=== PATIENT | male | born 1950 | race Caucasian/White ===

== ENCOUNTER 2017-06-10 15:22 | Emergency (ER) | payer MEDICARE ==
--- NOTE | 2017-06-10 15:47 | UC ---
UC General HPI - HPI Summary HPI Summary: patient has stiff neck for the past 2 dadys, no pain just limited ROM. no trauma or injury - History of Current Complaint Chief Complaint: UCBackPain Stated Complaint: STIFF NECK Time Seen by Provider: 06/10/17 15:36 Hx Obtained From: Patient Onset/Duration: Sudden Onset, Lasting Days Timing: Constant Onset Severity: Mild Current Severity: Mild - Allergy/Home Medications Allergies/Adverse Reactions: Allergies Allergy/AdvReac Type Severity Reaction Status Date / Time Codeine Allergy Vomiting Verified 06/10/17 15:36 Home Medications: Home Medications Multivitamins/Minerals TAB* [Theragran/minerals TAB*] 1 tab PO DAILY 06/10/17 [ History Confirmed 06/10/17] Argillite-3 Fatty Acids [Fish Oil] 1,000 mg PO DAILY 06/10/17 [History Confirmed ] PMH/Surg Hx/FS Hx/Imm Hx Previously Healthy: Yes - Surgical History Surgical History: Yes Surgery Procedure, Year, and Place: Skin biopsy - Family History Known Family History: Positive: Hypertension - Social History Alcohol Use: Occasionally Substance Use Type: None Smoking Status (MU): Former Smoker Review of Systems Constitutional: Negative Skin: Negative Eyes: Negative ENT: Negative Respiratory: Negative Cardiovascular: Negative Gastrointestinal: Negative Genitourinary: Negative Motor: Negative Musculoskeletal: Decreased ROM, Myalgia Neurological: Negative Psychological: Negative All Other Systems Reviewed And Are Negative: Yes Physical Exam Triage Information Reviewed: Yes Appearance: Well-Appearing, Well-Nourished, Pain Distress Vital Signs: Initial Vital Signs Temp 98.0 F 06/10/17 15:24 Pulse 89 06/10/17 15:24 Resp 16 06/10/17 15:24 BP 159/64 06/10/17 15:24 Pulse Ox 96 06/10/17 15:24 Vital Signs Reviewed: Yes Eye Exam: Normal ENT Exam: Normal Dental Exam: Normal Neck exam: Normal Respiratory Exam: Normal Cardiovascular Exam: Normal Abdominal Exam: Normal Bowel Sounds: Positive: Present Musculoskeletal: Positive: Strength Intact, No Edema, ROM Limited @ - in all direction of the neck Neurological Exam: Normal Neurological: Positive: Alert, Muscle Tone Normal Psychological Exam: Normal Skin Exam: Normal Course/Dx - Course Course Of Treatment: hx obtained, exam performed ,meds reviewed, treated for spasmotic torticolis. - Differential Dx - Multi-Symptom Provider Diagnoses: torticolis Discharge - Discharge Plan Condition: Stable Disposition: HOME Prescriptions: Cyclobenzaprine TAB* [Flexeril 10 MG TAB*] 10 mg PO TID PRN #12 tab PRN Reason: Spasms Patient Education Materials: Spasmodic Torticollis (ED) Additional Instructions: 1. take the flexeril as needed, 2. Heat and stretch the neck multiple times a day. 3. Ibuprofen as needed for pain and inflammation
[2017-06-10 15:52] VITALS: BP 159/64
== END 2017-06-10 15:52 | disposition home or self-care (01) ==
LOC: UCCORT 15:22
DX: M43.6 Torticollis (principal); Z88.5 Allergy status to narcotic agent; Z87.891 Personal history of nicotine dependence
CPT/HCPCS: 99202; G0463

== ENCOUNTER 2019-01-22 14:25 | Emergency (ER) | payer MEDICARE, OTHER ==
--- OUTSIDE RECORDS SUMMARY | 2019-01-22 14:46 | XMS REPORT | Continuity of Care Document ---
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 Active Onset: 04/22/2018 Stress incontinence after Angel Martins M.D. Active prostatectomy Onset: 05/05/2018 Aneurysm of thoracic aorta Evelin Kovacs MD Active Onset: 07/21/2018 Polyneuropathy due to drug Evelin Kovacs MD Active Onset: 07/22/2018 Tobacco dependence in remission Evelin Kovacs MD Active Onset: 10/17/2018 Irritable bowel syndrome with Evelin Kovacs MD Active diarrhea Onset: 12/15/2018 Disorder of peripheral autonomic Evelin Kovacs MD Active nervous system Onset: 07/22/2017 Malignant melanoma of skin Angel Martins M.D. Inactive Inactive: 07/22/2018 Note: Pt remembers having skin cancer, but can't remeber what type. Onset: 07/22/2017 Raised prostate specific antigen Angel Martins M.D. Inactive Inactive: 07/22/2018 Onset: Malignant neoplasm of skin Inactive Inactive: 07/22/2018 Onset: 02/12/2018 Adult health examination Evelin Kovacs MD Inactive Inactive: 07/22/2018 Onset: 02/12/2018 Adjustment disorder with depressed mood Evelin Kovacs MD Inactive Inactive: 07/22/2018 Onset: 04/08/2018 Disorder of skin and/or Rebekah Bee MD, PHD Inactive subcutaneous tissue Inactive: 07/22/2018 Onset: 08/12/2017 Tobacco user Evelin Kovacs MD Inactive Inactive: 07/22/2018 Onset: 02/24/2018 Syncope and collapse Angel Martins M.D. Resolved Resolved: 07/22/2018 Onset: 04/08/2018 Tick-borne relapsing fever Rebekah Bee MD, PHD Resolved Resolved: 07/22/2018 Onset: 04/08/2018 Other hypotension Rebekah eBe MD, PHD Resolved Resolved: 07/22/2018 Onset: 04/18/2018 Edema Evelin Kovacs MD Resolved Resolved: 07/22/2018 Onset: 05/05/2018 Aphthous ulcer of mouth Evelin Kovacs MD Resolved Resolved: 07/22/2018 Onset: 06/30/2018 Urinary tract infectious disease Angel Martins M.D. Resolved Resolved: 07/22/2018 Family History Date Family Member(s) Observation Comments Father due to Diabetes () Father Diabetes Mellitus Type 2 Father Macular Degeneration : (age 84 Mother due to Diabetes Years) Mother Diabetes Mellitus Type 2 Siblings 2 First Sister Alive First Sister Diabetes Mellitus Type 2 Second Sister Alive Paternal Grandfather due to Unknown Causes () Paternal Grandmother due to Unknown Causes () Maternal Grandfather due to Antonia Gehrigs () Maternal Grandmother due to Unknown Causes () Social History Type Date Description Comments Sex Unknown Marital Status Single Lives With Alone Diet Healthy, Well Balanced Pets 3 cats 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 Hobbies Reading Hobbies singing, guitar Tobacco Use Start: Unknown End: Quit 02/09/18 Unknown Smoking Status Reviewed: 01/12/19 Quit 02/09/18 ETOH Use Currently consumes 5 dr/mo alcohol socially Recreational Drug Use Denies Drug Use Tobacco Use Start: Unknown End: Patient is a former 1 ppd x 37 yrs Unknown smoker Allergies, Adverse Reactions, Alerts Description No Known Drug Allergies Medications Medication Date Status Form Strength Qnty SIG Indications Ordering Provider Zolpidem 12/15/19 Active Tablets 5mg 60tab take 1-2 Fermín, Tartrate 19 s tablets by MD Evelin mouth at night as needed for sleep Reference #: [id number] Prednisone 12/15/19 Active TBPK 5mg (21) 21uni 1 tab once Fermín, 19 ts a day with MD Evelin zytiga Gabapentin 10/27/20 Active Capsules 300mg 90cap take one Fermín, 18 s capsule by MD Evelin mouth 3x/day, note new dose Multivitamin Active Tablets 1 by mouth Unknown Adult 00 every day Fish Oil + D3 Active Capsules 0767-4150 1 PO qd Unknown 00 mg-Unit Zytiga Active Tablets 250mg take one po Unknown 00 4 x daily Lortab 11/25/19 Hx Tablets 5-325mg 9tabs 1 tablet as Tia, 19 - needed for Jovon, 12/15/19 pain every MD,FACS 19 8 hours by mouth Keflex 07/16/20 Hx Capsules 500mg 21cap 1 tab by Lakshmi, 18 - s mouth three Mahmoud, 07/21/20 times a day M.D. 18 Ciprofloxacin 07/02/20 Hx Tablets 500mg 14tab 1 by mouth Lakshmi, HCL 18 - s twice a day Angel, 07/28/20 M.DMilind 18 No Active 06/30/20 Hx Unknown Medications 18 - 07/02/20 18 Torsemide 06/13/20 Hx Tablets 20mg 60tab 2 tabs in R60.9 Fermín, 18 - s am 1/2 hr MD Evelin 06/30/20 after 18 taking the metolazone; may take 1 tab in afternoon if needed Metolazone 06/13/20 Hx Tablets 10mg 30tab 1 tab by R60.9 Fermín, 18 - s mouth in am MD Evelin 06/30/20 18 Furosemide 05/05/20 Hx Tablets 40mg 60tab take one R60.9 Fermín, 18 - s tablet by MD Evelin 06/13/20 mouth in 18 the morning; may repeat in pm if needed Triamcinolone 05/05/20 Hx Paste 0.1% 5gm apply to K12.0 Fermín Acetonide 18 - affected MD Evelin Dental Paste 06/30/20 oral 18 lesions 3x/day if needed, especially before bed, Furosemide 04/18/20 Hx Tablets 40mg 30tab take one R60.9 Fermín 18 - s tablet by MD Evelin 04/22/20 mouth in 18 the morning; may repeat in pm if needed Zolpidem 04/18/20 Hx Tablets 5mg 60tab 1 tab at Fermín, Tartrate 18 - s bedtime, MD Evelin Unknown may repeat x1 Reference #: [id number] Doxycycline 04/08/20 Hx Capsules 100mg 60cap 1 tab by A68.1 Benita Bee 18 - s mouth twice Rebekah, 04/22/20 a day , PHD 18 D70.1 Acetaminophen 10/22/2017 - Hx Tablets 325mg 30tabs Take 2 Unknown 10/31/2017 tablets by mouth every 6 (six) hours as needed for up to 10 days Docusate Sodium 10/22/2017 - Hx Capsules 100mg 42caps Take 1 Unknown 01/01/2018 capsule by mouth Two Times Daily Hydrocodone-Aceta 10/22/2017 - Hx Tablets 5-325mg 12tabs Take 1 Unknown minophen 10/31/2017 tablet by mouth every 4 (four) hours as needed for up to 3 days, Max Daily Dose: 6 tablets Lortab 10/14/2017 - Hx Tablets 5-325mg 20tabs 1-2 tablets Tia, 10/31/2017 as needed ovidio Sigala 8 ,FACS hours for pain Ciprofloxacin HCL 07/22/2017 - Hx Tablets 500mg 6tabs 1 by mouth R97 Lakshmi, 08/06/2017 twice a day .20 rogelio Ortiz directed Carlene Kent Enema 07/22/2017 - Hx Enema 7-19GM/1 133ml 1 enema in R97 Lakshmi, 08/06/2017 18ML rectum in .20 Angel, the morning M.DMilind of procedure Nicotine 07/09/2017 - Hx Patches 21mg/24H 14units apply one F17 Guru, 07/22/2017 24HR R per day .21 Daily, after 0 PNP-BC, removing S[employer] WORKER [employer] ESC[employer], Ibclc previous days patch Fish Oil - Hx Capsules DR 1200mg take 1 tabs Unknown 10/31/2017 by mouth daily Vitamin D - Hx Tablets 1000Unit 1 by mouth Unknown 11/13/2017 every day Multi Vitamin - Hx Tablets 1 by mouth Unknown 06/30/2018 every day Ambien - Hx Tablets 10mg 30tabs take 1/2-1 Fermín, 12/15/2018 tablet by MD Evelin mouth at night as needed for sleep maximum Calcium + D - Hx Chewtabs 500-1000 Unknown 04/08/2018 -40mg-Un t-mcg Prednisone - Hx Tablets 5mg 1 po bid day Mila, 06/13/2018 before and carol Diamond chemo Fish Oil + D3 - Hx Capsules 1200-100 take once Unknown 06/30/2018 0mg-Unit daily. Biotin Plus - Hx Tablets [id number] one tab po Unknown Keratin 06/30/2018 daily otc Gabapentin - Hx Capsules 100mg 3 po tid Mila, 10/27/2018 MD Dara Medications Administered in Office Medication Date Status Form Strength Qnty SIG Indications Ordering Provider Leuprolide Administered Injection Lakshmi, Acetate 7.5 MG 018 Ubaldo OrtizLupron) Carlene Leuprolide Administered Injection Lakshmi, Acetate 7.5 MG 018 Ubaldo OrtizLupronSally Concepcion Leuprolide Administered Injection Lakshmi, Acetate 7.5 MG Janine Ortiz M.D. (Lupron) Immunizations CPT Code Status Date Vaccine Lot # [id number] Given 10/17/2018 Pneumococcal Conjugate Vaccine 13 Valent For [id number] Intramuscular Use 90029 Given 10/17/2018 Influenza High Dose [id number] 28511 Given 07/09/2017 Tdap injection [id number] Vital Signs Date Vital Result Comment 12/15/2018 2:57pm BP Systolic 130 mmHg BP Diastolic 80 mmHg Heart Rate 87 /min Respiratory Rate 18 /min Height 72 inches 6'0" Weight 216.00 lb BMI (Body Mass Index) 29.3 kg/m2 BSA (Body Surface Area) 2.20 m2 Gary body weight in kilograms 81 kg O2 % BldC Oximetry 97 % 11/25/2018 1:16pm BP Systolic 160 mmHg BP Diastolic 101 mmHg Heart Rate 97 /min Respiratory Rate 18 /min Height 72 inches 6'0" Weight 208.00 lb BMI (Body Mass Index) 28.2 kg/m2 BSA (Body Surface Area) 2.17 m2 Gary body weight in kilograms 81 kg 10/23/2018 2:00pm BP Systolic 123 mmHg BP Diastolic 79 mmHg Body Temperature 98.4 F Heart Rate 86 /min Respiratory Rate 18 /min Height 72 inches 6'0" Weight 208.00 lb BMI (Body Mass Index) 28.2 kg/m2 BSA (Body Surface Area) 2.17 m2 Gary body weight in kilograms 81 kg O2 % BldC Oximetry 95 % Pain Level 0 10/22/2018 2:23pm BP Systolic 142 mmHg BP Diastolic 101 mmHg Heart Rate 84 /min Respiratory Rate 18 /min Height 72 inches 6'0" Weight 210.00 lb BMI (Body Mass Index) 28.5 kg/m2 BSA (Body Surface Area) 2.18 m2 Gary body weight in kilograms 81 kg O2 % BldC Oximetry 99 % 10/17/2018 2:05pm BP Systolic 134 mmHg BP Diastolic 78 mmHg Body Temperature 98.6 F Heart Rate 85 /min Respiratory Rate 20 /min Height 72 inches 6'0" Weight 210.00 lb BMI (Body Mass Index) 28.5 kg/m2 BSA (Body Surface Area) 2.18 m2 Gary body weight in kilograms 81 kg O2 % BldC Oximetry 96 % 07/21/2018 1:07pm BP Systolic 137 mmHg BP Diastolic 81 mmHg Body Temperature 97.4 F Heart Rate 70 /min Respiratory Rate 18 /min Height 72 inches 6'0" Weight 204.00 lb BMI (Body Mass Index) 27.7 kg/m2 BSA (Body Surface Area) 2.15 m2 Gary body weight in kilograms 81 kg O2 % BldC Oximetry 96 % 07/11/2018 2:39pm BP Systolic 140 mmHg BP Diastolic 82 mmHg Body Temperature 98.9 F Heart Rate 64 /min Respiratory Rate 16 /min Height 72 inches 6'0" Gary body weight in kilograms 81 kg O2 % BldC Oximetry 98 % Pain Level 0 06/30/2018 3:42pm BP Systolic 121 mmHg BP Diastolic 77 mmHg Body Temperature 99.9 F Heart Rate 77 /min Respiratory Rate 18 /min Height 72 inches 6'0" Weight 202.50 lb BMI (Body Mass Index) 27.5 kg/m2 BSA (Body Surface Area) 2.14 m2 Gary body weight in kilograms 81 kg O2 % BldC Oximetry 97 % Pain Level 0 06/13/2018 1:06pm BP Systolic Sitting Left Arm 124 mmHg BP Diastolic Sitting Left Arm 70 mmHg Body Temperature 98.1 F Heart Rate 82 /min Height 72 inches 6'0" Weight 205.00 lb BMI (Body Mass Index) 27.8 kg/m2 BSA (Body Surface Area) 2.15 m2 Gary body weight in kilograms 81 kg O2 % BldC Oximetry 96 % 05/05/2018 2:47pm BP Systolic 122 mmHg BP Diastolic 68 mmHg Body Temperature 97.8 F Heart Rate 78 /min Respiratory Rate 18 /min Height 72 inches 6'0" Weight 210.00 lb BMI (Body Mass Index) 28.5 kg/m2 BSA (Body Surface Area) 2.18 m2 Gary body weight in kilograms 81 kg O2 % BldC Oximetry 98 % 04/22/2018 1:51pm BP Systolic 116 mmHg BP Diastolic 80 mmHg Body Temperature 99.7 F Heart Rate 81 /min Respiratory Rate 16 /min Height 72 inches 6'0" Weight 200.00 lb BMI (Body Mass Index) 27.1 kg/m2 BSA (Body Surface Area) 2.13 m2 Gary body weight in kilograms 81 kg O2 % BldC Oximetry 96 % Pain Level 0 04/18/2018 3:44pm BP Systolic 134 mmHg BP Diastolic 76 mmHg Body Temperature 98.3 F Heart Rate 84 /min Respiratory Rate 18 /min Height 72 inches 6'0" Weight 204.00 lb BMI (Body Mass Index) 27.7 kg/m2 BSA (Body Surface Area) 2.15 m2 Gary body weight in kilograms 81 kg O2 % BldC Oximetry 96 % 04/08/2018 12:15pm BP Systolic 85 mmHg 92/60 recheck BP Diastolic 54 mmHg 92/60 recheck Body Temperature 100.2 F Heart Rate 112 /min Respiratory Rate 24 /min Height 72 inches 6'0" Weight 195.00 lb BMI (Body Mass Index) 26.4 kg/m2 BSA (Body Surface Area) 2.11 m2 Gary body weight in kilograms 81 kg O2 % BldC Oximetry 95 % 02/24/2018 1:43pm BP Systolic 115 mmHg BP Diastolic 81 mmHg Body Temperature 97.9 F Heart Rate 116 /min Respiratory Rate 16 /min Height 72 inches 6'0" Weight 193.25 lb BMI (Body Mass Index) 26.2 kg/m2 BSA (Body Surface Area) 2.10 m2 Gary body weight in kilograms 81 kg O2 % BldC Oximetry 96 % Pain Level 0 02/12/2018 1:04pm BP Systolic 137 mmHg BP Diastolic 93 mmHg Body Temperature 98.6 F Heart Rate 89 /min Respiratory Rate 17 /min Height 72 inches 6'0" Weight 198.00 lb BMI (Body Mass Index) 26.9 kg/m2 BSA (Body Surface Area) 2.12 m2 Gary body weight in kilograms 81 kg 01/22/2018 9:23am BP Systolic 138 mmHg BP Diastolic 88 mmHg Height 72 inches 6'0" Weight 198.00 lb BMI (Body Mass Index) 26.9 kg/m2 BSA (Body Surface Area) 2.12 m2 Gary body weight in kilograms 81 kg 01/21/2018 1:18pm BP Systolic 154 mmHg BP Diastolic 94 mmHg 01/21/2018 1:12pm BP Systolic 176 mmHg BP Diastolic 112 mmHg Body Temperature 97.6 F Heart Rate 54 /min Respiratory Rate 16 /min Height 72 inches 6'0" Weight 197.38 lb BMI (Body Mass Index) 26.8 kg/m2 BSA (Body Surface Area) 2.12 m2 Gary body weight in kilograms 81 kg O2 % BldC Oximetry 971 % Pain Level 1 low abd left side 01/07/2018 3:15pm BP Systolic 158 mmHg BP Diastolic 96 mmHg Body Temperature 97.5 F Heart Rate 65 /min Respiratory Rate 18 /min Height 72 inches 6'0" Weight 199.00 lb BMI (Body Mass Index) 27.0 kg/m2 BSA (Body Surface Area) 2.13 m2 Gary body weight in kilograms 81 kg O2 % BldC Oximetry 98 % Pain Level 0 12/25/2017 4:34pm BP Systolic 149 mmHg BP Diastolic 94 mmHg Body Temperature 97.9 F Heart Rate 94 /min Respiratory Rate 17 /min Height 72 inches 6'0" Gary body weight in kilograms 81 kg O2 % BldC Oximetry 98 % Pain Level 0 12/24/2017 1:06pm Height 72 inches 6'0" Weight 194.00 lb BMI (Body Mass Index) 26.3 kg/m2 BSA (Body Surface Area) 2.10 m2 Gary body weight in kilograms 81 kg 12/10/2017 10:55am BP Systolic 141 mmHg BP Diastolic 88 mmHg Heart Rate 88 /min Height 72 inches 6'0" Weight 194.31 lb BMI (Body Mass Index) 26.4 kg/m2 BSA (Body Surface Area) 2.10 m2 Gary body weight in kilograms 81 kg 11/13/2017 1:09pm BP Systolic 118 mmHg BP Diastolic 84 mmHg Body Temperature 97.5 F Heart Rate 116 /min Height 72 inches 6'0" Weight 188.00 lb BMI (Body Mass Index) 25.5 kg/m2 BSA (Body Surface Area) 2.08 m2 Gary body weight in kilograms 81 kg O2 % BldC Oximetry 98 % 11/05/2017 3:03pm BP Systolic 122 mmHg BP Diastolic 88 mmHg Height 72 inches 6'0" Weight 200.00 lb BMI (Body Mass Index) 27.1 kg/m2 BSA (Body Surface Area) 2.13 m2 Gary body weight in kilograms 81 kg 10/31/2017 11:37am BP Systolic 115 mmHg BP Diastolic 69 mmHg Body Temperature 98.4 F Heart Rate 74 /min Respiratory Rate 18 /min Height 72 inches 6'0" Weight 200.00 lb BMI (Body Mass Index) 27.1 kg/m2 BSA (Body Surface Area) 2.13 m2 Gary body weight in kilograms 81 kg O2 % BldC Oximetry 98 % Pain Level 4 Tip of penis 10/22/2017 4:21pm BP Systolic 103 mmHg BP Diastolic 64 mmHg Body Temperature 98.4 F Heart Rate 78 /min Respiratory Rate 18 /min 10/21/2017 7:48am Height 72.01 inches 6'0.01" BMI (Body Mass Index) 27.12 kg/m2 10/08/2017 9:01am BP Systolic 136 mmHg BP Diastolic 88 mmHg Height 72 inches 6'0" Weight 204.00 lb BMI (Body Mass Index) 27.7 kg/m2 BSA (Body Surface Area) 2.15 m2 Gary body weight in kilograms 81 kg 09/26/2017 5:11pm BP Systolic Sitting Left Arm 128 mmHg Large Cuff BP Diastolic Sitting Left Arm 78 mmHg Large Cuff Height 72 inches 6'0" Weight 198.00 lb BMI (Body Mass Index) 26.9 kg/m2 BSA (Body Surface Area) 2.12 m2 Gary body weight in kilograms 81 kg 09/03/2017 11:32am BP Systolic 134 mmHg BP Diastolic 83 mmHg Body Temperature 97.7 F 36.5c Heart Rate 78 /min Respiratory Rate 21 /min Weight 196.50 lb O2 % BldC Oximetry 97 % 08/27/2017 1:22pm BP Systolic 131 mmHg BP Diastolic 83 mmHg Body Temperature 98.1 F 36.7c Heart Rate 69 /min Respiratory Rate 18 /min Height 72 inches 6'0" Weight 193.00 lb BMI (Body Mass Index) 26.2 kg/m2 BSA (Body Surface Area) 2.10 m2 Gary body weight in kilograms 81 kg O2 % BldC Oximetry 99 % 08/12/2017 12:59pm BP Systolic 130 mmHg BP Diastolic 83 mmHg Heart Rate 98 /min Height 72 inches 6'0" Weight 193.00 lb BMI (Body Mass Index) 26.2 kg/m2 BSA (Body Surface Area) 2.10 m2 Gary body weight in kilograms 81 kg 08/06/2017 2:49pm BP Systolic 126 mmHg BP Diastolic 65 mmHg Body Temperature 99.0 F Heart Rate 80 /min Respiratory Rate 17 /min Height 72 inches 6'0" Weight 251.12 lb BMI (Body Mass Index) 34.1 kg/m2 BSA (Body Surface Area) 2.35 m2 Gary body weight in kilograms 81 kg O2 % BldC Oximetry 95 % Pain Level 0 07/30/2017 2:51pm BP Systolic 112 mmHg BP Diastolic 78 mmHg Body Temperature 98.8 F Heart Rate 73 /min Respiratory Rate 16 /min O2 % BldC Oximetry 94 % Pain Level 0 07/30/2017 1:48pm BP Systolic 128 mmHg BP Diastolic 82 mmHg Body Temperature 98.8 F 37.7 C Heart Rate 92 /min Respiratory Rate 18 /min Height 72 inches 6'0" Weight 193.25 lb BMI (Body Mass Index) 26.2 kg/m2 BSA (Body Surface Area) 2.10 m2 Gary body weight in kilograms 81 kg O2 % BldC Oximetry 95 % Pain Level 0 07/22/2017 3:09pm BP Systolic 128 mmHg BP Diastolic 80 mmHg Body Temperature 98.4 F 36.9 C Heart Rate 73 /min Respiratory Rate 16 /min Height 72 inches 6'0" Weight 193.38 lb BMI (Body Mass Index) 26.2 kg/m2 BSA (Body Surface Area) 2.10 m2 Gary body weight in kilograms 81 kg O2 % BldC Oximetry 98 % Pain Level 0 07/09/2017 8:57am BP Systolic 104 mmHg BP Diastolic 62 mmHg Height 72 inches 6'0" Weight 193.00 lb BMI (Body Mass Index) 26.2 kg/m2 BSA (Body Surface Area) 2.10 m2 Gary body weight in kilograms 81 kg Results Test Date Facility Test Result H/L Range Note Laboratory test 11/12/19 [facility] Prostate Specific 4.56 ng/mL < 4.0 1, 2 finding [address] Antigen [place], [place] [id number] [phone] Glycohemoglobin A1c 11/12/19 [facility] Glycohemoglobin 5.2 % N 4.2-6.[address] (A1c) [place], [place] [address] [phone] eAG 103 mg/dL Basic Metabolic Panel 11/12/2018 [facility] Glucose 100 mg/dL N 74-[address] [place], [place] [address] [phone] BUN 13 mg/dL N 7-18 Creatinine 0.9 mg/dL N 0.6-1.3 Glom Filtration Rate, Estimate >60 mL/min >60 If >60 mL/min >60 4 BUN/Creat 14.4 ratio Sodium 143 mmol/L N 136-145 Potassium 4.2 mmol/L N 3.5-5.1 Chloride 108 mmol/L High 98-107 Carbon Dioxide 30 mmol/L N 21-32 Anion Gap 5 mEq/L Low 8-16 Calcium 9.1 mg/dL N 8.5-10.1 Laboratory 11/12/2018 [facility] Testosterone,Serum 13 ng/dL Low 264-916 5 test finding [address] [place] [address] [phone] Celiac Disease 10/17/2018 [facility] Immunoglobulin A 222 61-437 6, 7 Comp AB [address] mg/dL Profile [place], [place] [id number] [phone] Antigliadin Abs, IgG 3 units 0-19 8 Antigliadin Abs, IgA 3 units 0-19 9 Endomysial IgA Antibody Negative Negative 10 t-Transglutaminase IgA <2 U/mL 0-3 11 t-Transglutaminase IgG <2 U/mL 0-5 12 Basic Metabolic Panel 07/17/2018 [facility] Glucose 100 mg/dL N 74-106 [address] [place], [place] [id number] [phone] BUN 16 mg/dL N 7-18 Creatinine 0.8 mg/dL N 0.6-1.3 Glom Filtration Rate, Estimate >60 mL/min >60 If >60 mL/min >60 14 BUN/Creat 20.0 ratio Sodium 144 mmol/L N 136-145 Potassium 4.9 mmol/L 3.5-5.1 Chloride 110 mmol/L High 98-107 Carbon Dioxide 31 mmol/L N 21-32 Anion Gap 3 mEq/L Low 8-16 Calcium 9.0 mg/dL N 8.5-10.1 Laboratory 07/17/2018 [facility] Prostate 0.15 ng/mL < 4.0 15 test finding [address] [place] [address] Antigen [phone] Urine Culture 07/11/2018 [facility] Urine PROTEUS Abnormal 16 [address] [facility] [place] [address] <SEE NOTE> [phone] Quantity 10,000 - 50,000 <SEE NOTE> 17 [id number] 07/11/2018 [facility] Nitrofurantoin [address] [place], [place] [id number] [phone] Trimethoprim/Sulfamethoxazole <=20 S Ampicillin <=2 S Cefazolin <=4 S Ampicillin/Sulbactam <=2 S Ciprofloxacin <=0.25 S Piperacillin/Tazobactam <=4 S Ceftazidime <=1 S Ceftriaxone <=1 S Cefepime <=1 S Levofloxacin <=0.12 S Gentamicin <=1 S Tobramycin <=1 S Urine Dipstick 06/30/2018 [facility] Ua Color Yellow Yellow Ua Clarity Clear Clear Ua Leuko 500 Zoraida/uL High Negative Ua Nitrite Negative Negative Ua Urobilinogen 17 umol/L High 0.2 - 1.0 E.U./dL Ua Protein 1.0 g/L High Negative Ua PH 6.0 Low 6.5-7.5 Ua Blood 200 All/uL High Negative Ua Specific [place] 1.020 1.010-1.030 Ua Ketones Negative Negative Ua Bilirubin Negative Negative Ua Glucose Negative Negative [id number] 06/30/2018 [facility] Nitrofurantoin 128 R [address] [place] [address] [phone] Trimethoprim/Sulfamethoxazole <=20 S Ampicillin <=2 S Cefazolin <=4 S Ampicillin/Sulbactam <=2 S Ciprofloxacin <=0.25 S Piperacillin/Tazobactam <=4 S Ceftazidime <=1 S Ceftriaxone <=1 S Cefepime <=1 S Levofloxacin <=0.12 S Gentamicin <=1 S Tobramycin <=1 S Differential-WBC Confirm 06/30/2018 [facility] Total Cells 100 #CELLS [address] [place] [address] [phone] Band% 5 % N 0-8 Neutrophils% 59 % N 33-73 Lymph% 27 % N 20-42 Monocyte% 8 % N 0-10 Eosinophil% 1 % N 0-5 Platelet Estimate NORMAL Slide Review 06/30/2018 [facility] Slide Review DIFF ORDERED [address] [place] [address] [phone] Urine Culture 06/30/2018 [facility] Urine Culture PROTEUS Abnormal [address] [place] <[place] [address] NOTE> [phone] Quantity > 100,000 CFU/mL 20 Laboratory test 06/30/2018 [facility] Prostate 0.11 ng/mL < 4.0 [address] [place] [address] Antigen [phone] Basic Metabolic 06/30/2018 [facility] Glucose 89 mg/dL N 74-[address] [place], [place] [id number] [phone] BUN 13 mg/dL N 7-18 Creatinine 0.8 mg/dL N 0.6-1.3 Glom Filtration Rate, Estimate >60 mL/min >60 If >60 mL/min >60 22 BUN/Creat 16.2 ratio Sodium 141 mmol/L N 136-145 Potassium 3.6 mmol/L N 3.5-5.1 Chloride 106 mmol/L N 98-107 Carbon Dioxide 28 mmol/L N 21-32 Anion Gap 7 mEq/L Low 8-16 Calcium 8.6 mg/dL N 8.5-10.1 CBS W/Automated Diff 06/30/2018 [facility] White Blood 9.6 K/uL N 3.4-10.[address] [place] [address] [phone] Red Blood Count 3.90 M/uL Low 4.20-5.80 Hemoglobin 13.2 gm/dL N 12.8-17.0 Hematocrit 37.5 % Low 38.0-48.0 Mean Cell Volume 96.2 fl High 80.0-96.0 Mean Corpuscular HGB 33.8 pg High 27.0-33.0 Mean Corpuscular HGB Conc 35.2 g/dL N 31.7-36.0 Platelet Count 244 K/uL N 155-360 Red Cell Distri Width SD 43.6 fl N 36-51 Red Cell Distri Width %CV 12.7 % N 11.6-15.8 Mean Platelet Volume 9.9 fL N 6.6-10.6 Neut% 61.2 % N 33.0-73.0 Lymph % 21.2 % N 20.0-42.0 [place] % 16.1 % High 0.0-10.0 Eo% 1.3 % N 0.0-6.6 Bas% 0.2 % N 0.0-1.1 Neut# 5.90 K/uL N 1.8-7.0 Lymph # 2.04 K/uL N 1.0-4.0 [place] # 1.55 K/uL High 0.0-0.8 Eos # 0.13 K/uL N 0.0-0.5 Baso # 0.02 K/uL N 0.0-0.1 Basic Metabolic Panel 05/05/2018 [facility] Glucose 85 mg/dL N 74-[address] [place], [place] [id number] [phone] BUN 12 mg/dL N 7-18 Creatinine 0.8 mg/dL N 0.6-1.3 Glom Filtration Rate, Estimate >60 mL/min >60 If >60 mL/min >60 24 BUN/Creat 15.0 ratio Sodium 144 mmol/L N 136-145 Potassium 3.9 mmol/L N 3.5-5.1 Chloride 106 mmol/L N 98-107 Carbon Dioxide 28 mmol/L N 21-32 Anion Gap 10 mEq/L N 8-16 Calcium 8.9 mg/dL N 8.5-10.1 Basic Metabolic Panel 04/21/2018 [facility] Glucose 97 mg/dL N 74-[address] [place], [place] [address] [phone] BUN 14 mg/dL N 7-18 Creatinine 0.8 mg/dL N 0.6-1.3 Glom Filtration Rate, Estimate >60 mL/min >60 If >60 mL/min >60 25 BUN/Creat 17.5 ratio Sodium 141 mmol/L N 136-145 Potassium 4.2 mmol/L N 3.5-5.1 Chloride 107 mmol/L N 98-107 Carbon Dioxide 27 mmol/L N 21-32 Anion Gap 7 mEq/L Low 8-16 Calcium 8.9 mg/dL N 8.5-10.1 Laboratory test 02/24/2018 CRM Act Partial 25.3 N 23.4-35.0 26, [address] [place] [address] Time [phone] Laboratory test 02/24/2018 [facility] Troponin-I < 0.015 [address] ng/mL [place], [place] [id number] [phone] CBS W/Automated 02/24/2018 [facility] White Blood 5.9 K/uL N 3.4-10.[address] [place] [address] [phone] Red Blood Count 4.49 M/uL N 4.20-5.80 Hemoglobin 14.6 gm/dL N 12.8-17.0 Hematocrit 40.7 % N 38.0-48.0 Mean Cell Volume 90.6 fl N 80.0-96.0 Mean Corpuscular HGB 32.5 pg N 27.0-33.0 Mean Corpuscular HGB Conc 35.9 g/dL N 31.7-36.0 Platelet Count 177 K/uL N 155-360 Red Cell Distri Width SD 42.9 fl N 36-51 Red Cell Distri Width %CV 13.3 % N 11.6-15.8 Mean Platelet Volume 10.1 fL N 6.6-10.6 Neut% 80.7 % High 33.0-73.0 Lymph % 16.2 % Low 20.0-42.0 [place] % 2.6 % N 0.0-10.0 Eo% 0.3 % N 0.0-6.6 Bas% 0.2 % N 0.0-1.1 Neut# 4.72 K/uL N 1.8-7.0 Lymph # 0.95 K/uL Low 1.0-4.0 [place] # 0.15 K/uL N 0.0-0.8 Eos # 0.02 K/uL N 0.0-0.5 Baso # 0.01 K/uL N 0.0-0.1 Laboratory test 02/24/2018 [facility] Lipase 87 U/L N 56-289 finding [address] [place] [address] [phone] Protime 02/24/2018 [facility] Protime 13.8 seconds N 12.0-14.4 [address] [place] [address] [phone] Inr 1.1 N 0.9-1.1 29 Laboratory test finding 02/24/2018 [facility] CK 57 U/L N 39-308 [address] [place] [address] [phone] Troponin-I < 0.015 ng/mL 30 Comprehensive Metabolic 02/24/2018 [facility] Glucose 117 mg/dL High 74-106 Panel [address] [place] [address] [phone] BUN 17 mg/dL N 7-18 Creatinine 0.9 mg/dL N 0.6-1.3 Glom Filtration Rate, Estimate >60 mL/min >60 If >60 mL/min >60 31 BUN/Creat 18.8 ratio Sodium 138 mmol/L N 136-145 Potassium 4.3 mmol/L N 3.5-5.1 Chloride 103 mmol/L N 98-107 Carbon Dioxide 30 mmol/L N 21-32 Anion Gap 5 mEq/L Low 8-16 Calcium 9.3 mg/dL N 8.5-10.1 Total Protein 7.3 g/dL N 6.4-8.2 Albumin 3.6 g/dL N 3.4-5.0 Globulin 3.7 g/dL N 1.9-4.3 Alb/Glob 1.0 ratio Bilirubin,Total 0.6 mg/dL N 0.2-1.0 Sgot/Ast 22 U/L N 15-37 SGPT/Alt 33 U/L N 12-78 Alkaline Phosphatase 88 U/L N 45-117 Routine Culture W/ 02/12/2018 [facility] Gram Stain NO WHITE BLOOD 32, [address]ain [address] C <SEE NOTE> [place] [address] [phone] Gram Stain NO ORGANISMS SEE <SEE NOTE> 34 Aerobic Culture NO PATHOGENS ISO <SEE NOTE> 35 Basic Metabolic Panel 12/31/2017 [facility] Glucose 100 mg/dL N 74-106 36 [address] [place], [place] [id number] [phone] BUN 11 mg/dL N 7-18 Creatinine 0.7 mg/dL N 0.6-1.3 Glom Filtration Rate, Estimate >60 mL/min >60 If >60 mL/min >60 37 BUN/Creat 15.7 ratio Sodium 142 mmol/L N 136-145 Potassium 4.2 mmol/L N 3.5-5.1 Chloride 107 mmol/L N 98-107 Carbon Dioxide 29 mmol/L N 21-32 Anion Gap 6 mEq/L Low 8-16 Calcium 9.3 mg/dL N 8.5-10.1 Laboratory test 12/24/2017 [facility] Prostate 7.98 ng/mL < 4.0 38 finding [address] [place] [place] [address] Antigen [phone] Laboratory test 11/13/2017 [facility] Uric Acid 5.1 mg/dL N 3.5-7.2 39 finding [address] [place] [address] [phone] Basic Metabolic 10/22/2017 N2N/CCD Import Anion Gap 15 mmol/L 8 - 15 Panel BUN/Cre Ratio 19 1 Bicarbonate 23 mmol/L 22 - 29 Blood Urea Nitrogen 14 mg/dL 8 - 23 Calcium 7.4 mg/dL Low 8.8 - 10.2 Chloride 103 mmol/L 96 - 108 Creatinine 0.75 mg/dL 0.5 - 1.2 GFR 2008 CKD-Epi >90 >60 mL/min/1.73m2 GFR Non 2008 CDK-Epi >90 >60 mL/min/1.73m2 Glucose 95 mg/dL 65 - 110 Osmolality, Kvng 292 mosm/kg 275 - 300 Potassium 4.4 mmol/L 3.3 - 5.1 Sodium 141 mmol/L 133 - 145 CBC 10/22/2017 N2N/CCD Import Hematocrit 32.2 % Low 41 - 53 Hemoglobin 11.1 g/dL Low 13.5 - 18 Mean Cell Hemoglobin 33.6 pg High 27 - 33 Mean Cell Hgb Conc 34.6 g/dL 32.0 - 36.0 Mean Cell Volume 97.1 fL High 80 - 96 Platelet Count 224 10*3/uL 150 - 400 Red Blood Cell 3.31 10*6/uL Low 4.6 - 6.1 Red Cell Dist Width 13.6 % 11.5 - 14.5 White Blood Cell 10.8 10*3/uL High 4 - 10 Creatinine, body 10/22/2017 N2N/CCD Import Creatinine, Fluid 0.8 mg/dL fluid Magnesium Level 10/22/2017 N2N/CCD Import Magnesium 2.1 mg/dL 1.6 - 2.6 Phosphorus Level 10/22/2017 N2N/CCD Import Phosphorus 3.1 mg/dL 2.7 - 4.5 Basic Metabolic 10/21/2017 N2N/CCD Import Anion Gap 14 mmol/L 8 - 15 Panel BUN/Cre Ratio 14 1 Bicarbonate 24 mmol/L 22 - 29 Blood Urea Nitrogen 16 mg/dL 8 - 23 Calcium 8.2 mg/dL Low 8.8 - 10.2 Chloride 101 mmol/L 96 - 108 Creatinine 1.16 mg/dL 0.5 - 1.2 GFR 2008 CKD-Epi 73 mL/min/1.73m2 >60 GFR Non 2008 CDK-Epi 63 mL/min/1.73m2 >60 Glucose 139 mg/dL High 65 - 110 Osmolality, Kvng 291 mosm/kg 275 - 300 Potassium 4.9 mmol/L 3.3 - 5.1 Sodium 139 mmol/L 133 - 145 Crossmatch, Pat 10/21/2017 N2N/CCD Import Abo/RH(D) A Pos Blood Component Type Leukoreduced Red Cells Blood Component Type Leukoreduced Red Cells Crossmatch Expiration 10/23/2017 Crossmatch Result Compatible Crossmatch Result Compatible Status Of Unit Rel From Alloc Status Of Unit Rel From Alloc Transfusion Status Ok To Transfuse Transfusion Status Ok To Transfuse Unit Division 0 1 Unit Division 0 1 Unit Number [id number] Unit Number [id number] CBC 10/21/2017 N2N/CCD Import Hematocrit 39.2 % Low 41 - 53 Hemoglobin 13.3 g/dL Low 13.5 - 18 Mean Cell Hemoglobin 33.1 pg High 27 - 33 Mean Cell Hgb Conc 34.0 g/dL 32.0 - 36.0 Mean Cell Volume 97.3 fL High 80 - 96 Platelet Count 247 10*3/uL 150 - 400 Red Blood Cell 4.02 10*6/uL Low 4.6 - 6.1 Red Cell Dist Width 13.6 % 11.5 - 14.5 White Blood Cell 22.0 10*3/uL High 4 - 10 Laboratory test 07/22/2017 [facility] Prostate 36.50 < 4.0 40, [address] Specific ng/[place] [address] Antigen [phone] Comprehensive 07/09/2017 [facility] Glucose 89 mg/dL N 74-106 42 Metabolic Panel [address] [place] [address] [phone] BUN 13 mg/dL N 7-18 Creatinine 0.8 mg/dL N 0.6-1.3 Glom Filtration Rate, Estimate >60 mL/min >60 If >60 mL/min >60 43 BUN/Creat 16.2 ratio Sodium 141 mmol/L N 136-145 Potassium 4.0 mmol/L N 3.5-5.1 Chloride 106 mmol/L N 98-107 Carbon Dioxide 28 mmol/L N 21-32 Anion Gap 7 mEq/L Low 8-16 Calcium 9.1 mg/dL N 8.5-10.1 Total Protein 7.5 g/dL N 6.4-8.2 Albumin 3.7 g/dL N 3.4-5.0 Globulin 3.8 g/dL N 1.9-4.3 Alb/Glob 1.0 ratio Bilirubin,Total 0.3 mg/dL N 0.2-1.0 Sgot/Ast 18 U/L N 15-37 SGPT/Alt 29 U/L N 12-78 Alkaline Phosphatase 74 U/L N 45-117 Reflex add FT3? Y Reflex add FT4? Y CBS W/Automated Diff 07/09/2017 [facility] White Blood 7.7 K/uL N 3.4-10.[address] Count [place], [place] [address] [phone] Red Blood Count 4.73 M/uL N 4.20-5.80 Hemoglobin 15.7 gm/dL N 12.8-17.0 Hematocrit 46.1 % N 38.0-48.0 Mean Cell Volume 97.5 fl High 80.0-96.0 Mean Corpuscular HGB 33.2 pg High 27.0-33.0 Mean Corpuscular HGB Conc 34.1 g/dL N 31.7-36.0 Platelet Count 288 K/uL N 150-400 Red Cell Distri Width SD 48.2 fl N 36-51 Red Cell Distri Width %CV 13.8 % N 11.6-15.8 Mean Platelet Volume 9.9 fL N 6.6-10.6 Neut% 59.8 % N 33.0-73.0 Lymph % 23.4 % N 20.0-42.0 [place] % 13.7 % High 0.0-10.0 Eo% 2.8 % N 0.0-6.6 Bas% 0.3 % N 0.0-1.1 Neut# 4.63 K/uL N 1.8-7.0 Lymph # 1.81 K/uL N 1.0-4.0 [place] # 1.06 K/uL High 0.0-0.8 Eos # 0.22 K/uL N 0.0-0.5 Baso # 0.02 K/uL N 0.0-0.1 Prostate Specific 07/09/2017 [facility] PSA (Iliff 34.50 ng/mL < 4.[address] Loci) [place], [place] [id number] [phone] Reflex add FT3? Y Reflex add FT4? Y TSH Reflex FT4 07/09/2017 [facility] Thyroid Stim 1.01 uIU/mL N 0.30-4.20 And/Or FT3 [address] [place] [address] [phone] Reflex add FT3? Y Reflex add FT4? Y Laboratory 07/09/2017 [facility] Varicella-Zoster 3975 index Immune 45 test finding [address] Virus IgG Ab >165 [place] [address] [phone] HCV Vilma Qual 07/09/2017 [facility] HCV Rna Vilma QL Negative Negative 46 [address]lex Eliz [address] [place] [address] [phone] LDL 07/09/2017 [facility] Cholesterol 187 mg/dL <[address] [place] [address] [phone] Triglycerides 115 mg/dL <150 48 HDL Cholesterol 48 mg/dL >40 49 LDL-Cholesterol 116 mg/dL < 100 50 Reflex add FT3? Y Reflex add FT4? Y Glycohemoglobin A1c 07/09/2017 [facility] Glycohemoglobin 5.3 % N 4.2-6.[address] (A1c) [place], [place] [address] [phone] eAG 105 mg/dL 1 C61 2 THIS ASSAY IS NOT INTENDED A CANCER SCREENING TEST The concentration of PSA in a given specimen, determined with assays from different manufacturers, can vary due to differences in assay methods and reagent specificity. Values obtained from different assay methods cannot be used interchangeably. Method: Siemens Dimension Iliff Chemiluminescent immunoassay. 3 Elevated levels of HbA1c suggest the need for more aggressive treatment of glycemia. The [place] [employer] recommends that a primary goal of therapy should be a HbA1c of <7% and that physicians should re-evaluate the treatment regimen in patients with HbA1c values consistently >8%. 4 Note: Persistent reduction for 3 months or more in an eGFR <60 mL/min/1.73 m2 defines CKD. Patients with eGFR values >/=60 mL/min/1.73 m2 may also have CKD if evidence of persistent proteinuria is present. The original MDRD equation for estimated GFR is not valid for patients less than 18 years of age. Additional information may be found at www.kdoqi.org. 5 Adult male reference interval is based on a population of healthy nonobese males (BMI <30) between 19 and 39 years old. maria r Merritt.al. JCEM 2017,102;5617-9336. PMID: 90858327. Performed at: [facility] [address] [id number] Tree Wrapper: Nayeli Mcclain MD, Phone: [phone] 6 K58.0 7 10/22/18 0605: IGA previously reported as: mg/dL Performed at: [address] [id number] Tree Wrapper: Nayeli Mcclain MD, Phone: [phone] Amended result called to: [] - 10/22/18 at 0605 Performed at: [address] [id number] Tree Wrapper: Nayeli Mcclain MD, Phone: [phone] Negative 0 - 19 Weak Positive 20 - 30 Moderate to Strong Positive >30 9 Negative 0 - 19 Weak Positive 20 - 30 Moderate to Strong Positive >30 10 10/22/18 0605: ENDOMYSIAL IgA previously reported as: Negative Performed at: [address] [id number] Tree Wrapper: Nayeli Mcclain MD, Phone: [phone] Amended result called to: [] - 10/22/18 at 0605 11 Negative 0 - 3 Weak Positive 4 - 10 Positive >10 Tissue Transglutaminase (tTG) has been identified as the endomysial antigen. Studies have demonstr- ated that endomysial IgA antibodies have over 99% specificity for gluten sensitive enteropathy. 12 Negative 0 - 5 Weak Positive 6 - 9 Positive >9 13 R60.9 C61 14 Note: Persistent reduction for 3 months or more in an eGFR <60 mL/min/1.73 m2 defines CKD. Patients with eGFR values >/=60 mL/min/1.73 m2 may also have CKD if evidence of persistent proteinuria is present. The original MDRD equation for estimated GFR is not valid for patients less than 18 years of age. Additional information may be found at www.kdoqi.org. 15 THIS ASSAY IS NOT INTENDED A CANCER SCREENING TEST The concentration of PSA in a given specimen, determined with assays from different manufacturers, can vary due to differences in assay methods and reagent specificity. Values obtained from different assay methods cannot be used interchangeably. Method: Siemens SmartCells Iliff Chemiluminescent immunoassay. 16 PROTEUS MIRABILIS 17 10,000 - 50,000 CFU/mL 18 C61 N39.0 19 PROTEUS MIRABILIS 20 > 100,000 CFU/mL 21 THIS ASSAY IS NOT INTENDED A CANCER SCREENING TEST The concentration of PSA in a given specimen, determined with assays from different manufacturers, can vary due to differences in assay methods and reagent specificity. Values obtained from different assay methods cannot be used interchangeably. Method: Siemens SmartCells Iliff Chemiluminescent immunoassay. 22 Note: Persistent reduction for 3 months or more in an eGFR <60 mL/min/1.73 m2 defines CKD. Patients with eGFR values >/=60 mL/min/1.73 m2 may also have CKD if evidence of persistent proteinuria is present. The original MDRD equation for estimated GFR is not valid for patients less than 18 years of age. Additional information may be found at www.kdoqi.org. 23 R60.9 24 Note: Persistent reduction for 3 months or more in an eGFR <60 mL/min/1.73 m2 defines CKD. Patients with eGFR values >/=60 mL/min/1.73 m2 may also have CKD if evidence of persistent proteinuria is present. The original MDRD equation for estimated GFR is not valid for patients less than 18 years of age. Additional information may be found at www.kdoqi.org. 25 Note: Persistent reduction for 3 months or more in an eGFR <60 mL/min/1.73 m2 defines CKD. Patients with eGFR values >/=60 mL/min/1.73 m2 may also have CKD if evidence of persistent proteinuria is present. The original MDRD equation for estimated GFR is not valid for patients less than 18 years of age. Additional information may be found at www.kdoqi.org. 26 PASSED OUT 27 Is patient on anticoagulants? Coumadin 28 0.0 - 0.045 ng/mL: Normal 0.046 - 0.5 ng/mL: Suggestive 0.6 - 1.5 ng/mL: Consistent 29 THERAPEUTIC INR RANGE: 2.0 - 3.0 DVT, Pulmonary embolus, prophylaxis against venous thrombosis or systemic embolization in high risk patients. 2.5 - 3.5 Mechanical heart valves 30 0.0 - 0.045 ng/mL: Normal 0.046 - 0.5 ng/mL: Suggestive 0.6 - 1.5 ng/mL: Consistent 31 Note: Persistent reduction for 3 months or more in an eGFR <60 mL/min/1.73 m2 defines CKD. Patients with eGFR values >/=60 mL/min/1.73 m2 may also have CKD if evidence of persistent proteinuria is present. The original MDRD equation for estimated GFR is not valid for patients less than 18 years of age. Additional information may be found at www.kdoqi.org. 32 CBN 33 NO WHITE BLOOD CELLS 34 NO ORGANISMS SEEN 35 NO PATHOGENS ISOLATED 36 C61 37 Note: Persistent reduction for 3 months or more in an eGFR <60 mL/min/1.73 m2 defines CKD. Patients with eGFR values >/=60 mL/min/1.73 m2 may also have CKD if evidence of persistent proteinuria is present. The original MDRD equation for estimated GFR is not valid for patients less than 18 years of age. Additional information may be found at www.kdoqi.org. 38 THIS ASSAY IS NOT INTENDED A CANCER SCREENING TEST The concentration of PSA in a given specimen, determined with assays from different manufacturers, can vary due to differences in assay methods and reagent specificity. Values obtained from different assay methods cannot be used interchangeably. Method: Siemens SmartCells Iliff Chemiluminescent immunoassay. 39 M25.571 40 M54.2, R97.20 41 THIS ASSAY IS NOT INTENDED A CANCER SCREENING TEST The concentration of PSA in a given specimen, determined with assays from different manufacturers, can vary due to differences in assay methods and reagent specificity. Values obtained from different assay methods cannot be used interchangeably. Method: Siemens Dimension Iliff Chemiluminescent immunoassay. 42 Z00.01 R39.12 R53.83 Z13.1 Z13.220 Z11.59 43 Note: Persistent reduction for 3 months or more in an eGFR <60 mL/min/1.73 m2 defines CKD. Patients with eGFR values >/=60 mL/min/1.73 m2 may also have CKD if evidence of persistent proteinuria is present. The original MDRD equation for estimated GFR is not valid for patients less than 18 years of age. Additional information may be found at www.kdoqi.org. 44 THIS ASSAY IS NOT INTENDED A CANCER SCREENING TEST The concentration of PSA in a given specimen, determined with assays from different manufacturers, can vary due to differences in assay methods and reagent specificity. Values obtained from different assay methods cannot be used interchangeably. Method: [employer] Iliff Chemiluminescent immunoassay. 45 Negative <135 Equivocal 135 - 165 Positive >165 A positive result generally indicates exposure to the pathogen or administration of specific immunoglobulins, but it is not indication of active infection or stage of disease. Performed at: - [facility] [id number] Tree Wrapper: Nayeli Mcclain MD, Phone: [phone] Performed at: - [facility] [id number] Tree Wrapper: Valdemar Chiu MD, Phone: [phone] 46 Negative: HCV RNA Not Detected 47 Reference Guidelines*: Desirable: ........... < 200 mg/dL Borderline High: ..... 200-239 mg/dL High: ................ >=240 mg/dL * The National Cholesterol Education Program (NCEP) 48 Reference Guidelines*: Normal: ............. < 150 mg/dL Borderline High: .... 150-199 mg/dL High: ............... 200-499 mg/dL Very High: .......... > 500 mg/dL * Source: National Cholesterol Education Program (NCEP) 49 Reference Guidelines*: Low HDL: ..... < 40 mg/dL Normal: ..... 40-60 mg/dL Desirable: ... > 60 mg/dL *The National Cholesterol Education Program(NCEP) 50 Reference Guidelines*: Optimal:........... <100 mg/dL Near Optimal....... 100-129 mg/dL Borderline High.... 130-159 mg/dL High............... 160-189 mg/dL Very High.......... >=190 mg/dL * Source: National Cholesterol Education Program (NCEP) 51 Elevated levels of HbA1c suggest the need for more aggressive treatment of glycemia. The [place] Diabetes [employer] recommends that a primary goal of therapy should be a HbA1c of <7% and that physicians should re-evaluate the treatment regimen in patients with HbA1c values consistently >8%. Procedures Date Code Description Status 01/12/2019 19177 Eye Exam Est Patient Comprehensive Completed 11/25/2018 83312 Remove venous access, +subq port or pump, central or Completed peripheral 07/28/2018 52034 Eye Exam Est Patient Comprehensive Completed 06/30/2018 22072 Measurement Post Voiding Residual Urine By Completed Ultrasound,Non-Imaging 06/30/2018 77667 complex uroflowmetry electronic Completed 04/22/2018 84562 Chemotherapy Admin Subcut/Intramuscular Hormonal Completed Anti-Neoplastic 01/24/2018 47772 Insertion Tunneled Cent Venous Cathr W Subcut Port 5 Completed Yrs Or Oldr 01/21/2018 95792 Chemotherapy Admin Subcut/Intramuscular Hormonal Completed Anti-Neoplastic 12/25/2017 41947 Chemotherapy Admin Subcut/Intramuscular Hormonal Completed Anti-Neoplastic 12/10/2017 51047 Excise malig lesion, trunk, arms & legs 0.6-2.0 cm Completed 10/31/2017 77180 Irrigation Of Bladder Completed 10/14/2017 76508 Exc Benign Lesion Face/1.1-2.0 CM Completed 10/14/2017 71235 Exc Benign Lesion Except Skin Tag-Trunk,Arm,Or Legs 1.1 Completed To 2.0CM 09/03/2017 93514 Cystoscopy Completed 07/30/2017 40485 Biopsy Prostate Needle Or Punch Completed 07/24/2017 44814 Eye Exam New Patient Comprehensive Completed 11/11/2015 27208502 Colonoscopy Completed 10/13/2015 32893 Echocardiogram Complete Completed Encounters Type Date Location Provider Dx Diagnosis Office Visit 12/15/2018 Family Medicine Evelin Kovacs, R60.9 Edema, unspecified 2:45p Maynor ZUÑIGA MD 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 Office Visit 01/22/2018 9:30a Surgical Office Jovon Weber C61 Malignant neoplasm HORACE CALVERT of prostate Office Visit 01/21/2018 1:00p Urology nAgel Martins C61 Malignant neoplasm M.DMilind of prostate C61 Malignant neoplasm of prostate 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 Office Visit 12/25/2017 4:15p Urology Angel Martins C61 Malignant Carlene neoplasm of prostate Office Visit 11/13/2017 1:00p Family Evelin Wynne C[address] MD neoplasm of prostate 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 M25.571 Pain in right ankle and joints of right foot Office Visit 11/05/2017 2:45p Surgical Office Jovon Weber C43.59 Malignant HORACE CALVERT melanoma of other part of trunk Office Visit 10/08/2017 9:00a Surgical Office Jovon Weber D48.5 Neoplasm of HORACE CALVERT uncertain behavior of skin Office Visit 09/26/2017 4:30p Family Evelin Wynne C[address] MD neoplasm of prostate D48.5 Neoplasm of uncertain behavior of skin Office Visit 08/27/2017 1:15p Urology Angel Martins C61 Malignant Carlene neoplasm of prostate Office Visit 08/12/2017 1:00p [facility] Evelin Wynne C[address] MD neoplasm of prostate F17.210 Nicotine dependence, cigarettes, uncomplicated Z71.6 Tobacco abuse counseling Office Visit 08/06/2017 2:45p Urology Lakshmi, C61 Malignant Carlene Ortiz neoplasm of prostate Office Visit 07/22/2017 3:15p Urology Lakshmi, R97.20 Elevated Carlene Ortiz prostate specific antigen [PSA] Office Visit 07/09/2017 9:00a [facility] Daily Garvey, Z00.01 Encounter for [facility] PNP-BC, [employer], general adult Ibclc medical exam w abnormal findings F17.210 Nicotine dependence, cigarettes, uncomplicated M54.2 Cervicalgia R39.12 Poor urinary stream R53.83 Other fatigue Z85.828 Personal history of other malignant neoplasm of skin Z13.1 Encounter for screening for diabetes mellitus Z13.220 Encounter for screening for lipoid disorders Z11.59 Encounter for screening for other viral diseases G47.00 Insomnia, unspecified Z23 Encounter for immunization Z71.6 Tobacco abuse counseling Plan of Treatment Future Appointment(s):01/22/2019 1:15 pm - Gunnar Reyes MD at [facility]/ 03/2019 2:45 pm - Evelin Kovacs MD at [facility]04/30/2019 1: 00 pm - Angel Martins M.D. at [id number]/30/2019 1:30 pm - Gunnar Reyes MD at [facility]/04/2019 - Gunnar Reyes [id number] Vitreous degeneration, left eyeComments:- no sign of retinal break or tear- review signs and symptoms of retinal detachment- review visual field self-assessment and need for evalFollow up:10-14 days return visit; dilate os; please call sooner with ? or concerns
[2019-01-22 15:19] VITALS: BP 152/77
--- NOTE | 2019-01-22 16:29 | UC ---
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 Maintained on Zytiga and prednisone. He has 4 day hx of low back pain, began after an antigue show where he was moving boxes in and out of a [employer]aru. Some relief with Aleve, but pain exacerbated after getting in and out of the car a lot yesterday. Did not get relief with use of hydrocodone last night. - History of Current Complaint Chief Complaint: UCBackPain Stated Complaint: BACK PAIN Time Seen by Provider: 01/22/19 16:04 Hx Obtained From: Patient Onset/Duration: Gradual Onset, Lasting Days - 4 Timing: Constant Severity Initially: Moderate Severity Currently: Severe Pain Intensity: 10 Back Pain: Is Diffuse, Radiates To - across lumbar spine Character: Aching, Throbbing Aggravating Factor(s): Movement, Lifting, Bending, Walking Alleviating Factor(s): Rest, OTC Meds Associated Signs And Symptoms: Positive: Negative - Risk Factors AAA Risk Factors: Negative TAD Risk Factors: Negative Cauda Equina Risk Factors: Negative Epidural Abscess Risk Factors: Negative - Allergies/Home Medications Allergies/Adverse Reactions: Allergies Allergy/AdvReac Type Severity Reaction Status Date / Time codeine Allergy Vomiting Verified 01/22/19 15:11 Home Medications: Home Medications Abiraterone Acetate [Zytiga] 1 each PO DAILY 01/22/19 [History Confirmed ] Gabapentin 300 mg PO TID 01/22/19 [History Confirmed 01/22/19] Hydrocodone/Acetaminophen [Vicodin 5-300 mg Tablet] 1.5 each PO ONCE 01/22/19 [ History Confirmed 01/22/19] Naproxen [Naprosyn 500 mg tab] 500 mg PO DAILY 01/22/19 [History Confirmed 01/22] predniSONE [Prednisone 5 MG TAB] 5 mg PO DAILY 01/22/19 [History Confirmed 01/22] PMH/Surg Hx/FS Hx/Imm Hx - Additional Past Medical History Additional PMH: Stage 4 CA prostate - Surgical History Surgical History: Yes Surgery Procedure, Year, and Place: Skin biopsy. PROSTATE BIOPSY. PROSTATECTOMY - Family History Known Family History: Positive: Hypertension - Social History Occupation: Employed Part-time Lives: Alone Alcohol Use: Occasionally Substance Use Type: None Smoking Status (MU): Former Smoker Review of Systems All Other Systems Reviewed And Are Negative: Yes Constitutional: Positive: Fatigue Skin: Positive: Negative Eyes: Positive: Negative ENT: Positive: Negative Respiratory: Negative: Cough Cardiovascular: Positive: Negative Gastrointestinal: Positive: Negative Genitourinary: Positive: Negative Motor: Positive: Negative Neurovascular: Positive: Negative Musculoskeletal: Positive: Myalgia Neurological: Positive: Negative Psychological: Positive: Negative Is Patient Immunocompromised?: No Physical Exam Triage Information Reviewed: Yes Appearance: Well-Appearing, Pain Distress - moderate Vital Signs: Initial Vital Signs Temp 98.3 F 01/22/19 15:10 Pulse 55 01/22/19 15:10 Resp 17 01/22/19 15:10 BP 152/77 01/22/19 15:10 Pulse Ox 97 01/22/19 15:10 Eye Exam: Normal Respiratory: Positive: Lungs clear, Normal breath sounds Cardiovascular: Positive: RRR, No Murmur Musculoskeletal: Positive: ROM Limited @ - lumbar spine with FF to 20 degrees only. Antalgic gait, moving slowly. No bony spinal tenderness. Can heel and toe walk Neurological: Positive: Alert, Muscle Tone Normal Skin Exam: Normal Back Pain Course/Dx - Course Course Of Treatment: comes primarily for pain control. Declined spinal xray to rule out compression fracture. - Differential Dx/Diagnosis Differential Diagnosis/HQI/PQRI: Fracture, Herniated Disc, Strain Provider Diagnosis: Lumbar spine strain Discharge - Sign-Out/Discharge Documenting (check all that apply): Patient Departure All imaging exams completed and their final reports reviewed: No Studies - Discharge Plan Condition: Stable Disposition: HOME Prescriptions: Cyclobenzaprine TAB* [Flexeril 10 MG TAB*] 10 mg PO TID PRN #30 tab PRN Reason: Pain - Back Naproxen [Naproxen 500 mg tab] 500 mg PO BID PRN #30 tablet PRN Reason: Pain Patient Education Materials: Acute Low Back Pain (ED) Referrals: Evelin Kovacs MD [Primary Care Provider] - Additional Instructions: As discussed, we are assuming that your back pain is due to muscle strain. It should respond to increased dose of naproxen and a muscle relaxant. If you continue to have pain, follow up with Dr. Kovacs to have an xray done, because you do have risk for compression fracture of the spine. Stop use of naproxen if it causes stomach upset, and be aware that muscle relaxants cause sedation. - Billing Disposition and Condition Condition: STABLE Disposition: Home
== END 2019-01-22 16:48 | disposition home or self-care (01) ==
LOC: UCCORT 14:25
DX: S39.012A Strain of muscle, fascia and tendon of lower back, initial encounter (principal); C61 Malignant neoplasm of prostate; C79.51 Secondary malignant neoplasm of bone; Z79.1 Long term (current) use of non-steroidal anti-inflammatories (NSAID); Z79.899 Other long term (current) drug therapy; Z88.5 Allergy status to narcotic agent; Z90.79 Acquired absence of other genital organ(s); Z87.891 Personal history of nicotine dependence; X50.0XXA Overexertion from strenuous movement or load, initial encounter; Y93.89 Activity, other specified; Y92.9 Unspecified place or not applicable
CPT/HCPCS: 99212; G0463